=== PATIENT | male | born 1955 | race Caucasian/White ===

== ENCOUNTER 2016-06-16 08:48 | Inpatient (IN) | payer OTHER ==
[~2016-06-16] VITALS: Ht 185.4 cm; Wt 138.0 kg
[~2016-06-16 08:48] MED LIST: ALDACTAZIDE 251 EACH PO; ALDACTONE100 MG PO; AMLODIPINE BESY10 MG PO; CENTRUM ULTRA1 EACH PO; CEPHALEXIN500 MG PO; COGENTIN1 MG PO; Chronulac,Cephulac,E PO; FLOVENT 11120 INHALA IH; FUROSEMIDE40 MG PO; LASIX20 MG PO; OMEPRAZOLE20 M2 PO; POTASSIUM GLUCO2 MEQ PO; SIMVASTATIN20 MG PO; SPIRONOLACTONE25 MG PO; VENTOLIN HFA18 GM IH; VITAMIN D31000 UNIT PO; ZYPREXA10 MG PO
[2016-06-16 10:19] LABS: CHLORIDE 103 mEq/L (99-109); POTASSIUM 4.9 mEq/L (3.7-5.4); SODIUM 136 mEq/L (136-147)
[2016-06-16 10:22] LABS: GLUCOSE 109 mg/dL (70-99); HEMATOCRIT 28.2 % (38.0-50.0); MCH 29.2 PG (29.0-34.0); MCHC 32.6 G/DL (30.0-36.0); MCV 89.5 FL (86-99); MEAN PLAT.VOLUME 11.1 uM^3 (9.0-12.4); PLATELET COUNT 65 K/uL (156-360); RBC DIS.WIDTH-CV 15.8 % (11.8-14.6); RBC DIS.WIDTH-SD 51.1 % (39-53); RED BLOOD COUNT 3.15 M/uL (4.00-5.50); WHITE BLOOD COUNT 5.9 K/uL (4.1-10.2)
[2016-06-16 10:23] LABS: ANION GAP 12 MEQ/L (2-14)
[2016-06-16 10:24] LABS: TOTAL BILIRUBIN 2.2 mg/dL (0.0-1.0)
[2016-06-16 10:25] LABS: GFR ESTIMATE (CALCULATED) 29 mL/min/
[2016-06-16 10:26] LABS: UREA NITROGEN (BUN) 39 mg/dL (9-23)
[2016-06-16 10:29] LABS: TROP-I INTERPRETATION NEGATIVE; TROPONIN-I 0.07 ng/mL (0.0-0.30)
[2016-06-16 11:02] LABS: ALKALINE PHOSPHATASE 124 IU/L (3-129)
[2016-06-16] MEDS ORDERED: POTASSIUM GLUCO2 MEQ PO (11:18)
[2016-06-16] MEDS ORDERED: DAILY VALUE1 EACH PO (11:19)
[2016-06-16 16:00] VITALS: BP 143/78
[2016-06-16 17:04] LABS: TYPE OF FLUID PARACENTESIS
[2016-06-16 17:10] LABS: BODY FLUID RBC'S 1000 /MM^3 (0-100); BODY FLUID WBC'S 10529 /MM^3 (0-500)
[2016-06-16 17:12] LABS: BODY FLUID EOSINOPHILS 2 % (0-25); MONO RAW COUNT 19; MONONUCLEAR WBC'S 19 %; POLY RAW COUNT 79; POLYNUCLEAR WBC'S 79 % (0-25)
[2016-06-16 17:55] LABS: BODY FLUID PROTEIN < 3.0 G/DL
[2016-06-16 18:16] VITALS: BP 132/60
[2016-06-16 19:23] LABS: INFLUENZA A VIRAL ANTIGEN NEGATIVE; INFLUENZA B VIRAL ANTIGEN NEGATIVE
[2016-06-16 19:23] LABS: ADD MIUA? YES; BILIRUBIN NEGATIVE; BLOOD LARGE; COLOR DK YELLOW ((YELLOW)); GLUCOSE (STRIP) NEGATIVE; KETONES NEGATIVE; LEUKOCYTES NEGATIVE; NITRITE NEGATIVE; PROTEIN (STRIP) TRACE; UROBILINOGEN 0.2 MG/DL (0.2-1.0)
[2016-06-16 19:44] LABS: BACTERIA NONE SEEN; CASTS NONE SEEN /LPF; CRYSTALS NONE SEEN; EPITHELIAL CELLS NONE SEEN; MUCUS NONE SEEN; UCUL ADDED? NO; WHITE BLOOD CELLS NONE SEEN /HPF (0-5)
[2016-06-16 21:25] LABS: METH RESISTANT S AUREUS PCR NEGATIVE (NEGATIVE)
[2016-06-16 21:26] LABS: PROBE CHECK PASS; SPECIMEN PROCESSING CONTROL PASS
[2016-06-16 23:33] VITALS: BP 139/75
[2016-06-17 03:33] VITALS: BP 133/71
[2016-06-17 03:52] LABS: ADD MIUA? YES; BILIRUBIN NEGATIVE; BLOOD MODERATE; COLOR YELLOW ((YELLOW)); GLUCOSE (STRIP) NEGATIVE; KETONES NEGATIVE; LEUKOCYTES NEGATIVE; NITRITE NEGATIVE; PROTEIN (STRIP) TRACE; SPECIFIC GRAVITY 1.028 (1.000-1.030); UROBILINOGEN 0.2 MG/DL (0.2-1.0)
[2016-06-17 04:11] LABS: BACTERIA 1+; CASTS PRESENT /LPF; CRYSTALS NONE SEEN; EPITHELIAL CELLS RARE; MUCUS NONE SEEN; WHITE BLOOD CELLS 0-5 /HPF (0-5)
[2016-06-17 04:24] LABS: UR CREATININE CONCENTRATION 114.7 MG/DL
[2016-06-17 06:31] LABS: EOSINOPHIL (%) 0 % (0-5); HEMATOCRIT 25.6 % (38.0-50.0); IMMATURE GRANULOCYTE (%) 0.2 % (0.0-0.7); LYMPHOCYTE COUNT 0.3 K/uL (1.0-2.8); MCH 28.7 PG (29.0-34.0); MCHC 32.4 G/DL (30.0-36.0); MCV 88.6 FL (86-99); MEAN PLAT.VOLUME 11.6 uM^3 (9.0-12.4); MONOCYTE (%) 14.5 % (3-12); MONOCYTE COUNT 0.7 K/uL (0-0.8); NEUTROPHIL (%) 79.9 % (45-76); PLATELET COUNT 56 K/uL (156-360); RBC DIS.WIDTH-CV 15.9 % (11.8-14.6); RBC DIS.WIDTH-SD 50.9 % (39-53); RED BLOOD COUNT 2.89 M/uL (4.00-5.50)
[2016-06-17 06:49] LABS: INTER. NORMALIZED RATIO 1.5; PROTHROMBIN TIME 15.4 (9.2-11.2); PTT 28.1 (25-32)
[2016-06-17 06:59] LABS: ALKALINE PHOSPHATASE 102 IU/L (3-129); ANION GAP 10 MEQ/L (2-14); CHLORIDE 101 MEQ/L (99-109); GFR ESTIMATE (CALCULATED) 27 mL/min/; POTASSIUM 4.6 MEQ/L (3.7-5.4); SAMPLE HEMOLYSIS CHECK 0; SAMPLE ICTERIC CHECK 0; SAMPLE LIPEMIA CHECK 0; SODIUM 134 MEQ/L (136-147); TOTAL BILIRUBIN 1.1 MG/DL (0.0-1.0); UREA NITROGEN (BUN) 46 mg/dL (9-23)
[2016-06-17 06:59] LABS: ANION GAP 10 MEQ/L (2-14); CHLORIDE 101 MEQ/L (99-109); GFR ESTIMATE (CALCULATED) 28 mL/min/; IRON 26 MCG/DL (35-150); POTASSIUM 4.6 MEQ/L (3.7-5.4); SAMPLE HEMOLYSIS CHECK 0; SAMPLE ICTERIC CHECK 0; SAMPLE LIPEMIA CHECK 0; SODIUM 134 MEQ/L (136-147); UREA NITROGEN (BUN) 45 mg/dL (9-23)
[2016-06-17 07:12] LABS: URIC ACID 11.1 mg/dL (3.1-9.2)
[2016-06-17 07:13] LABS: GLUCOSE 190 mg/dL (70-99)
[2016-06-17 07:13] LABS: GLUCOSE 187 mg/dL (70-99)
[2016-06-17 07:52] VITALS: BP 132/64
[2016-06-17 08:03] LABS: INTERNAL CONTROL VALID? YES
[2016-06-17 12:20] VITALS: BP 145/70
[2016-06-17 15:35] VITALS: BP 139/68
[2016-06-17 20:15] VITALS: BP 139/73
[2016-06-18] VITALS: BP 144/74
[2016-06-18 04:00] VITALS: BP 149/76
[2016-06-18 06:39] LABS: EOSINOPHIL (%) 0.2 % (0-5); IMMATURE GRANULOCYTE (%) 0.2 % (0.0-0.7); LYMPHOCYTE COUNT 0.5 K/uL (1.0-2.8); MCH 29.5 PG (29.0-34.0); MCHC 33.2 G/DL (30.0-36.0); MEAN PLAT.VOLUME 11.3 uM^3 (9.0-12.4); MONOCYTE (%) 9.4 % (3-12); MONOCYTE COUNT 0.6 K/uL (0-0.8); NEUTROPHIL (%) 81.5 % (45-76); NEUTROPHIL COUNT 4.9 K/uL (1.8-6.4); PLATELET COUNT 63 K/uL (156-360); RBC DIS.WIDTH-CV 15.9 % (11.8-14.6); RBC DIS.WIDTH-SD 51.5 % (39-53); RED BLOOD COUNT 2.81 M/uL (4.00-5.50)
[2016-06-18 07:00] LABS: ANION GAP 12 MEQ/L (2-14); CHLORIDE 99 MEQ/L (99-109); GFR ESTIMATE (CALCULATED) 24 mL/min/; GLUCOSE 144 mg/dL (70-99); POTASSIUM 4.6 MEQ/L (3.7-5.4); SAMPLE HEMOLYSIS CHECK 0; SAMPLE ICTERIC CHECK 0; SAMPLE LIPEMIA CHECK 0; SODIUM 134 MEQ/L (136-147); UREA NITROGEN (BUN) 53 mg/dL (9-23)
[2016-06-18 07:01] LABS: ALKALINE PHOSPHATASE 94 IU/L (3-129); ANION GAP 13 MEQ/L (2-14); CHLORIDE 99 MEQ/L (99-109); GFR ESTIMATE (CALCULATED) 25 mL/min/; GLUCOSE 144 mg/dL (70-99); POTASSIUM 4.6 MEQ/L (3.7-5.4); SAMPLE HEMOLYSIS CHECK 0; SAMPLE ICTERIC CHECK 0; SAMPLE LIPEMIA CHECK 0; SODIUM 134 MEQ/L (136-147); TOTAL BILIRUBIN 0.9 MG/DL (0.0-1.0); UREA NITROGEN (BUN) 52 mg/dL (9-23)
[2016-06-18 07:50] VITALS: BP 154/76
[2016-06-18 16:07] VITALS: BP 152/71
[2016-06-18 23:32] VITALS: BP 134/71; BP 134/710
[2016-06-19 07:19] LABS: ANION GAP 12 MEQ/L (2-14); CHLORIDE 97 MEQ/L (99-109); GFR ESTIMATE (CALCULATED) 24 mL/min/; GLUCOSE 147 mg/dL (70-99); POTASSIUM 4.9 MEQ/L (3.7-5.4); SAMPLE HEMOLYSIS CHECK 0; SAMPLE ICTERIC CHECK 0; SAMPLE LIPEMIA CHECK 0; SODIUM 132 MEQ/L (136-147); UREA NITROGEN (BUN) 57 mg/dL (9-23)
[2016-06-19 07:42] VITALS: BP 143/82
[2016-06-19 11:13] LABS: TYPE OF FLUID PARACENTESIS
[2016-06-19 11:38] LABS: BODY FLUID RBC'S 1000 /MM^3 (0-100); BODY FLUID WBC'S 627 /MM^3 (0-500)
[2016-06-19 12:10] LABS: BODY FLUID EOSINOPHILS 0 % (0-25); POLY RAW COUNT 41; POLYNUCLEAR WBC'S 41 % (0-25)
[2016-06-19 12:11] LABS: MONO RAW COUNT 59; MONONUCLEAR WBC'S 59 %
[2016-06-19 15:34] VITALS: BP 186/93
[2016-06-19 17:31] VITALS: BP 144/80
[2016-06-20] VITALS: BP 158/71
[2016-06-20 06:44] LABS: EOSINOPHIL (%) 0.2 % (0-5); HEMATOCRIT 25.9 % (38.0-50.0); IMMATURE GRANULOCYTE (%) 0.5 % (0.0-0.7); LYMPHOCYTE COUNT 0.4 K/uL (1.0-2.8); MCH 28.6 PG (29.0-34.0); MCHC 32.8 G/DL (30.0-36.0); MCV 87.2 FL (86-99); MEAN PLAT.VOLUME 10.9 uM^3 (9.0-12.4); MONOCYTE (%) 7.4 % (3-12); MONOCYTE COUNT 0.5 K/uL (0-0.8); NEUTROPHIL (%) 85.4 % (45-76); NEUTROPHIL COUNT 5.3 K/uL (1.8-6.4); PLATELET COUNT 74 K/uL (156-360); RBC DIS.WIDTH-CV 15.8 % (11.8-14.6); RBC DIS.WIDTH-SD 50.3 % (39-53); RED BLOOD COUNT 2.97 M/uL (4.00-5.50); WHITE BLOOD COUNT 6.2 K/uL (4.1-10.2)
[2016-06-20 08:42] VITALS: BP 150/80
[2016-06-20 08:59] LABS: ANION GAP 11 MEQ/L (2-14); CHLORIDE 99 MEQ/L (99-109); GFR ESTIMATE (CALCULATED) 23 mL/min/; GLUCOSE 139 mg/dL (70-99); SAMPLE HEMOLYSIS CHECK 0; SAMPLE ICTERIC CHECK 0; SAMPLE LIPEMIA CHECK 0; SODIUM 132 MEQ/L (136-147); UREA NITROGEN (BUN) 63 mg/dL (9-23)
[2016-06-20 14:43] VITALS: BP 138/75
[2016-06-20 20:23] VITALS: BP 140/80
[2016-06-20 23:59] VITALS: BP 142/65
[2016-06-21 06:43] LABS: ANION GAP 11 MEQ/L (2-14); CHLORIDE 99 MEQ/L (99-109); GFR ESTIMATE (CALCULATED) 23 mL/min/; GLUCOSE 140 mg/dL (70-99); POTASSIUM 4.6 MEQ/L (3.7-5.4); SAMPLE HEMOLYSIS CHECK 0; SAMPLE ICTERIC CHECK 0; SAMPLE LIPEMIA CHECK 0; SODIUM 132 MEQ/L (136-147); UREA NITROGEN (BUN) 67 mg/dL (9-23)
[2016-06-21 07:39] VITALS: BP 137/81
[2016-06-21 12:42] LABS: TYPE OF FLUID PARACENTESIS
[2016-06-21 12:53] LABS: BODY FLUID RBC'S < 1000 /MM^3 (0-100); BODY FLUID WBC'S 424 /MM^3 (0-500)
[2016-06-21 14:33] LABS: BODY FLUID EOSINOPHILS 0 % (0-25); MONO RAW COUNT 87; MONONUCLEAR WBC'S 87 %; POLY RAW COUNT 13; POLYNUCLEAR WBC'S 13 % (0-25)
[2016-06-21 15:57] VITALS: BP 142/75
[2016-06-22 00:07] VITALS: BP 155/82
[2016-06-22 07:00] LABS: HEMATOCRIT 25.7 % (38.0-50.0); MCH 28.8 PG (29.0-34.0); MCHC 33.5 G/DL (30.0-36.0); MEAN PLAT.VOLUME 9.7 uM^3 (9.0-12.4); PLATELET COUNT 60 K/uL (156-360); RBC DIS.WIDTH-CV 15.7 % (11.8-14.6); RBC DIS.WIDTH-SD 49.5 % (39-53); RED BLOOD COUNT 2.99 M/uL (4.00-5.50); WHITE BLOOD COUNT 5.8 K/uL (4.1-10.2)
[2016-06-22 07:24] LABS: ALKALINE PHOSPHATASE 85 IU/L (3-129); ANION GAP 13 MEQ/L (2-14); CHLORIDE 98 MEQ/L (99-109); GFR ESTIMATE (CALCULATED) 22 mL/min/; GLUCOSE 118 mg/dL (70-99); POTASSIUM 4.2 MEQ/L (3.7-5.4); SAMPLE HEMOLYSIS CHECK 0; SAMPLE ICTERIC CHECK 0; SAMPLE LIPEMIA CHECK 0; SODIUM 134 MEQ/L (136-147); TOTAL BILIRUBIN 0.9 MG/DL (0.0-1.0); UREA NITROGEN (BUN) 75 mg/dL (9-23)
[2016-06-22 07:25] VITALS: BP 140/79
[2016-06-22] MEDS ORDERED: ADVAIR HFA120 INHALA IH (10:49)
[2016-06-22] MEDS ORDERED: SPIRIVA RESPIMAT4 GM IH ×2 (10:49→11:07)
[2016-06-22] MEDS ORDERED: XIFAXAN550 MG PO (10:49)
[2016-06-22] MEDS ORDERED: PREDNISONE10 MG PO (10:49)
[2016-06-22] MEDS ORDERED: BUMETANIDE1 MG PO (10:49)
[2016-06-22] MEDS ORDERED: ALDACTONE25 MG PO ×2 (11:17→11:18)
== END 2016-06-22 12:58 | disposition home or self-care (01) | DRG 371 ==
LOC: EME → EDBD 08:48 → EME 08:48 → 5SOUTH 11:42 → EDOF 11:42 → 5SOUTH 14:38
PROVIDERS: Emergency Medicine; Internal Medicine; Internal Medicine Gastroenterology; Internal Medicine Infectious Disease; Internal Medicine Nephrology; Radiology Diagnostic Radiology
PROC: 0W9G3ZX Drainage of Peritoneal Cavity, Percutaneous Approach, Diagnostic (ICD-10-PCS; principal; 2016-06-16)
PROC: 0W9G3ZX Drainage of Peritoneal Cavity, Percutaneous Approach, Diagnostic (ICD-10-PCS; 2016-06-19)
PROC: 0W9G3ZX Drainage of Peritoneal Cavity, Percutaneous Approach, Diagnostic (ICD-10-PCS; 2016-06-21)
DX: K65.2 Spontaneous bacterial peritonitis (principal); J18.9 Pneumonia, unspecified organism; N17.9 Acute kidney failure, unspecified; J81.1 Chronic pulmonary edema; J90 Pleural effusion, not elsewhere classified; K76.6 Portal hypertension; L03.115 Cellulitis of right lower limb; L03.114 Cellulitis of left upper limb; J44.1 Chronic obstructive pulmonary disease with (acute) exacerbation; N18.4 Chronic kidney disease, stage 4 (severe); E87.1 Hypo-osmolality and hyponatremia; K72.90 Hepatic failure, unspecified without coma; K70.31 Alcoholic cirrhosis of liver with ascites; I12.9 Hypertensive chronic kidney disease with stage 1 through stage 4 chronic kidney disease, or unspecified chronic kidney disease; E66.9 Obesity, unspecified; E78.5 Hyperlipidemia, unspecified; F17.200 Nicotine dependence, unspecified, uncomplicated; D64.9 Anemia, unspecified; I89.0 Lymphedema, not elsewhere classified; D69.6 Thrombocytopenia, unspecified; N28.1 Cyst of kidney, acquired; E11.22 Type 2 diabetes mellitus with diabetic chronic kidney disease; Z68.38 Body mass index [BMI] 38.0-38.9, adult; Z86.19 Personal history of other infectious and parasitic diseases
CPT/HCPCS: 71010; 71020; 80048; 80053; 80069; 81003; 82040; 82105 90; 82570; 82607; 82746; 83540; 83935; 84100; 84156; 84157; 84300; 84466; 84484; 84550; 85025; 85027; 85610; 85730; 87070; 87075; 87205; 87449; 87502; 87641; 88108; 88305; 89051; 93005; 94640; 94640 76; 94760; 94799; 99202; 99281; 99285; J0696; J1940; J7050; J7512; P9047

== ENCOUNTER 2016-06-24 19:46 | Emergency (ER) | payer OTHER ==
[~2016-06-24] VITALS: Ht 180.3 cm; Wt 124.2 kg
[~2016-06-24 19:46] MED LIST changes: +ADVAIR HFA120 INHALA IH; +ALDACTONE25 MG PO; +BUMETANIDE1 MG PO; +DAILY VALUE1 EACH PO; +PREDNISONE10 MG PO; +SPIRIVA RESPIMAT4 GM IH; +XIFAXAN550 MG PO
[2016-06-24 20:16] LABS: HEMATOCRIT 28.1 % (38.0-50.0); MCH 28.1 PG (29.0-34.0); MCHC 32.4 G/DL (30.0-36.0); MCV 86.7 FL (86-99); MEAN PLAT.VOLUME 9.7 uM^3 (9.0-12.4); PLATELET COUNT 73 K/uL (156-360); RBC DIS.WIDTH-CV 15.1 % (11.8-14.6); RBC DIS.WIDTH-SD 46.1 % (39-53); RED BLOOD COUNT 3.24 M/uL (4.00-5.50); WHITE BLOOD COUNT 6.4 K/uL (4.1-10.2)
[2016-06-24 20:25] LABS: CHLORIDE 97 mEq/L (99-109); POTASSIUM 4.1 mEq/L (3.7-5.4); SODIUM 135 mEq/L (136-147)
[2016-06-24 20:27] LABS: GLUCOSE 157 mg/dL (70-99)
[2016-06-24 20:28] LABS: ANION GAP 13 MEQ/L (2-14)
[2016-06-24 20:29] LABS: TOTAL BILIRUBIN 1.2 mg/dL (0.0-1.0)
[2016-06-24 20:31] LABS: ALKALINE PHOSPHATASE 102 IU/L (3-129); GFR ESTIMATE (CALCULATED) 25 mL/min/
[2016-06-24 20:32] LABS: UREA NITROGEN (BUN) 89 mg/dL (9-23)
[2016-06-24 20:34] LABS: LIPASE 60 U/L (1.0-51.0)
[2016-06-24 20:53] LABS: INTER. NORMALIZED RATIO 1.4; PROTHROMBIN TIME 14.7 (9.2-11.2); PTT 25.6 (25-32)
[2016-06-24 21:04] LABS: ADD MIUA? YES; BILIRUBIN NEGATIVE; BLOOD MODERATE; COLOR YELLOW ((YELLOW)); GLUCOSE (STRIP) NEGATIVE; KETONES NEGATIVE; LEUKOCYTES NEGATIVE; NITRITE NEGATIVE; PH, URINE 5.5 (5-8); PROTEIN (STRIP) 30; SPECIFIC GRAVITY 1.015 (1.000-1.030); UROBILINOGEN 0.2 MG/DL (0.2-1.0)
[2016-06-24 22:05] LABS: BACTERIA NONE SEEN; CASTS PRESENT /LPF; CRYSTALS NONE SEEN; EPITHELIAL CELLS NONE SEEN; HYALINE CASTS 0-5 /LPF; MUCUS NONE SEEN; UCUL ADDED? NO; WHITE BLOOD CELLS 0-5 /HPF (0-5)
[2016-06-24 23:36] VITALS: BP 136/77
== END 2016-06-24 23:53 | disposition home or self-care (01) ==
LOC: EME → EDBD 19:46 → EME 23:53
PROVIDERS: Emergency Medicine
PROC: 0HQ7XZZ Repair Abdomen Skin, External Approach (ICD-10-PCS; principal; 2016-06-24)
DX: K91.89 Other postprocedural complications and disorders of digestive system (principal); K72.10 Chronic hepatic failure without coma; N18.9 Chronic kidney disease, unspecified; J43.9 Emphysema, unspecified; J44.9 Chronic obstructive pulmonary disease, unspecified; F17.200 Nicotine dependence, unspecified, uncomplicated
CPT/HCPCS: 80053; 81003; 82140; 83690; 85027; 85610; 85730; 94640; 99281; 99285

== ENCOUNTER 2016-06-27 16:03 | Emergency (ER) | payer OTHER ==
[~2016-06-27] VITALS: Ht 180.3 cm; Wt 122.5 kg
[2016-06-27 19:25] VITALS: BP 154/79
== END 2016-06-27 19:26 | disposition home or self-care (01) ==
LOC: EME 16:03
DX: R18.8 Other ascites (principal); N18.3 Chronic kidney disease, stage 3 (moderate); J43.9 Emphysema, unspecified; J44.9 Chronic obstructive pulmonary disease, unspecified; E11.9 Type 2 diabetes mellitus without complications; F17.200 Nicotine dependence, unspecified, uncomplicated; Z79.4 Long term (current) use of insulin
CPT/HCPCS: 99281; 99283

== ENCOUNTER → 2016-07-10 | Outpatient (CLI) | payer OTHER | END | disposition home or self-care (01) | LOC: RAD 08:35 | DX: K70.31 Alcoholic cirrhosis of liver with ascites (principal); K76.6 Portal hypertension; J18.9 Pneumonia, unspecified organism; R06.02 Shortness of breath; Z88.7 Allergy status to serum and vaccine | CPT/HCPCS: 71250 ==

== ENCOUNTER 2016-08-20 20:30 | Inpatient (IN) | payer OTHER ==
[~2016-08-20] VITALS: Ht 180.3 cm; Wt 95.0 kg
[2016-08-20 21:10] LABS: CHLORIDE 103 mEq/L (99-109); POTASSIUM 4.2 mEq/L (3.7-5.4); SODIUM 138 mEq/L (136-147)
[2016-08-20 21:11] LABS: GLUCOSE 114 mg/dL (70-99)
[2016-08-20 21:13] LABS: ANION GAP 13 MEQ/L (2-14)
[2016-08-20 21:15] LABS: GFR ESTIMATE (CALCULATED) 31 mL/min/; SERUM ETHYL ALCOHOL < 10 mg/dL
[2016-08-20 21:16] LABS: UREA NITROGEN (BUN) 79 mg/dL (9-23)
[2016-08-20 21:41] LABS: HEMATOCRIT 36.4 % (38.0-50.0); MCH 30.6 PG (29.0-34.0); MCHC 32.4 G/DL (30.0-36.0); MCV 94.3 FL (86-99); MEAN PLAT.VOLUME 10.8 uM^3 (9.0-12.4); PLATELET COUNT 91 K/uL (156-360); RBC DIS.WIDTH-CV 18.6 % (11.8-14.6); RBC DIS.WIDTH-SD 63.8 % (39-53); RED BLOOD COUNT 3.86 M/uL (4.00-5.50)
[2016-08-20 22:05] LABS: AMPHETAMINE NEGATIVE (500 ng/mL); BARBITURATES NEGATIVE (200 ng/mL); BENZODIAZEPINES NEGATIVE (150 ng/mL); COCAINE NEGATIVE (150 ng/mL); INTERNAL CONTROLS VALID? YES; METHADONE NEGATIVE (200 ng/mL); METHAMPHETAMINE NEGATIVE (500 ng/mL); OPIATES (MORPHINE) NEGATIVE (100 ng/mL); OXYCODONE NEGATIVE (100 ng/mL); PHENCYCLIDINE NEGATIVE (25 ng/mL); PROPOXYPHENE NEGATIVE (300 ng/mL); THC CANNABINOIDS NEGATIVE (50 ng/mL); TRICYCLIC ANTIDEPRESSANTS NEGATIVE (300 ng/mL)
[2016-08-20 22:51] LABS: INTER. NORMALIZED RATIO 1.4; PROTHROMBIN TIME 14.3 (9.2-11.2); PTT 27.3 (25-32)
[2016-08-20 22:55] LABS: TOTAL BILIRUBIN 1.5 mg/dL (0.0-1.0)
[2016-08-20 23:12] LABS: SERUM ETHYL ALCOHOL < 10 mg/dL
[2016-08-20 23:13] LABS: ALKALINE PHOSPHATASE 85 IU/L (3-129)
[2016-08-20 23:15] LABS: DIRECT BILIRUBIN 0.5 mg/dL (0.0-0.3)
[2016-08-20 23:16] LABS: SALICYLATE < 5.0 MG/DL (15-30)
[2016-08-20 23:55] VITALS: BP 151/74
[2016-08-21] VITALS: BP 151/74
[2016-08-21 00:29] LABS: POINT-OF-CARE METER ID UU13113830; POINT-OF-CARE USER ID BHSSMG
[2016-08-21] MEDS ORDERED: SPIRONOLACTONE100 MG PO (03:08)
[2016-08-21] MEDS ORDERED: INCRUSE ELLI62.5 MCG IH (03:08)
[2016-08-21] MEDS ORDERED: XIFAXAN550 MG PO (03:09)
[2016-08-21] MEDS ORDERED: ADVAIR HFA120 INHALA IH (03:09)
[2016-08-21] MEDS ORDERED: BUMETANIDE1 MG PO (03:10)
[2016-08-21] MEDS ORDERED: COREG25 M1 PO (03:10)
[2016-08-21] MEDS ORDERED: OLANZAPINE10 MG PO (03:11)
[2016-08-21] MEDS ORDERED: OMEPRAZOLE20 M2 PO (03:11)
[2016-08-21] MEDS ORDERED: LASIX20 MG PO (03:12)
[2016-08-21] MEDS ORDERED: SIMVASTATIN20 MG PO (03:12)
[2016-08-21] MEDS ORDERED: FLOVENT 11120 INHALA IH (03:13)
[2016-08-21] MEDS ORDERED: LOSARTAN POTASS25 MG PO (03:13)
[2016-08-21] MEDS ORDERED: BENZTROPINE MESY1 MG PO (03:13)
[2016-08-21 06:07] LABS: POINT-OF-CARE METER ID UU13113830; POINT-OF-CARE USER ID BHSSMG
[2016-08-21 07:49] VITALS: BP 121/76
[2016-08-21 15:52] VITALS: BP 142/66
[2016-08-22 07:59] VITALS: BP 98/60
[2016-08-22 15:43] VITALS: BP 114/56
[2016-08-22 15:51] LABS: HEMATOCRIT 35.4 % (38.0-50.0); MCH 30.3 PG (29.0-34.0); MCHC 32.2 G/DL (30.0-36.0); MCV 94.1 FL (86-99); MEAN PLAT.VOLUME 10.3 uM^3 (9.0-12.4); PLATELET COUNT 68 K/uL (156-360); RBC DIS.WIDTH-CV 18.6 % (11.8-14.6); RBC DIS.WIDTH-SD 64.1 % (39-53); RED BLOOD COUNT 3.76 M/uL (4.00-5.50); WHITE BLOOD COUNT 3.7 K/uL (4.1-10.2)
[2016-08-22 16:03] LABS: CHLORIDE 103 mEq/L (99-109); POTASSIUM 4.5 mEq/L (3.7-5.4); SODIUM 135 mEq/L (136-147)
[2016-08-22 16:05] LABS: GLUCOSE 179 mg/dL (70-99)
[2016-08-22 16:06] LABS: ANION GAP 11 MEQ/L (2-14)
[2016-08-22 16:08] LABS: GFR ESTIMATE (CALCULATED) 24 mL/min/
[2016-08-22 16:09] LABS: UREA NITROGEN (BUN) 92 mg/dL (9-23)
[2016-08-23] MEDS ORDERED: FUROSEMIDE20 MG PO (18:15)
[2016-08-23] MEDS ORDERED: IRON325 M1 PO (18:16)
== END 2016-08-22 18:27 | DRG 885 ==
LOC: EME → EDBD 20:30 → EME 20:30 → EDOF 23:25 → 1WEST 23:25
PROVIDERS: Emergency Medicine; Nurse Practitioner Adult Health; Psychiatry & Neurology Psychiatry
DX: F25.0 Schizoaffective disorder, bipolar type (principal); L03.115 Cellulitis of right lower limb; R78.81 Bacteremia; N17.9 Acute kidney failure, unspecified; K70.40 Alcoholic hepatic failure without coma; K70.31 Alcoholic cirrhosis of liver with ascites; K76.6 Portal hypertension; I12.9 Hypertensive chronic kidney disease with stage 1 through stage 4 chronic kidney disease, or unspecified chronic kidney disease; N18.3 Chronic kidney disease, stage 3 (moderate); D68.4 Acquired coagulation factor deficiency; E11.22 Type 2 diabetes mellitus with diabetic chronic kidney disease; J44.9 Chronic obstructive pulmonary disease, unspecified; B19.20 Unspecified viral hepatitis C without hepatic coma; F10.10 Alcohol abuse, uncomplicated; F19.10 Other psychoactive substance abuse, uncomplicated; F17.200 Nicotine dependence, unspecified, uncomplicated; E78.5 Hyperlipidemia, unspecified; Z91.14 Patient's other noncompliance with medication regimen; Z85.828 Personal history of other malignant neoplasm of skin
CPT/HCPCS: 71010; 80048; 80076; 82140; 82948; 83605; 85027; 85610; 85730; 87040; 87077; 87186; 87801; 90839; 93005; 93971; 94640; 94640 76; 99281; 99284; G0480; J0696

== ENCOUNTER 2016-08-22 16:29 | Inpatient (IN) | payer OTHER ==
[~2016-08-22 16:29] MED LIST changes: +BENZTROPINE MESY1 MG PO; +COREG25 M1 PO; +INCRUSE ELLI62.5 MCG IH; +LOSARTAN POTASS25 MG PO; +OLANZAPINE10 MG PO; +SPIRONOLACTONE100 MG PO
[2016-08-22 21:24] VITALS: BP 125/73
[2016-08-23 00:11] VITALS: BP 124/72
[2016-08-23 04:46] VITALS: BP 117/72
[2016-08-23 07:15] LABS: MCHC 32.3 G/DL (30.0-36.0); MCV 92.8 FL (86-99); MEAN PLAT.VOLUME 10.6 uM^3 (9.0-12.4); PLATELET COUNT 73 K/uL (156-360); RBC DIS.WIDTH-CV 18.4 % (11.8-14.6); RBC DIS.WIDTH-SD 63.1 % (39-53); RED BLOOD COUNT 3.77 M/uL (4.00-5.50); WHITE BLOOD COUNT 4.6 K/uL (4.1-10.2)
[2016-08-23 07:23] LABS: INTER. NORMALIZED RATIO 1.3; PROTHROMBIN TIME 13.6 (9.2-11.2); PTT 26.5 (25-32)
[2016-08-23 07:33] LABS: ALKALINE PHOSPHATASE 70 IU/L (3-129); ANION GAP 9 MEQ/L (2-14); CHLORIDE 101 MEQ/L (99-109); GFR ESTIMATE (CALCULATED) 23 mL/min/; POTASSIUM 4.2 MEQ/L (3.7-5.4); SAMPLE HEMOLYSIS CHECK 0; SAMPLE ICTERIC CHECK 0; SAMPLE LIPEMIA CHECK 0; SODIUM 135 MEQ/L (136-147); TOTAL BILIRUBIN 0.6 MG/DL (0.0-1.0); UREA NITROGEN (BUN) 90 mg/dL (9-23)
[2016-08-23 07:36] LABS: GLUCOSE 99 mg/dL (70-99)
[2016-08-23 07:55] VITALS: BP 124/68
[2016-08-23 11:43] VITALS: BP 113/69
[2016-08-23 15:06] VITALS: BP 130/68
[2016-08-23] MEDS ORDERED: FUROSEMIDE20 MG PO (18:15)
[2016-08-23] MEDS ORDERED: IRON325 M1 PO (18:16)
[2016-08-23 20:00] VITALS: BP 157/76
[2016-08-24] VITALS (7 sets, daily range): BP systolic 139–176; BP diastolic 54–80
[2016-08-24 07:44] LABS: EOSINOPHIL COUNT 0.2 K/uL (0-0.3); HEMATOCRIT 32.4 % (38.0-50.0); IMMATURE GRANULOCYTE (%) 0.3 % (0.0-0.7); MCH 30.6 PG (29.0-34.0); MCHC 32.7 G/DL (30.0-36.0); MCV 93.6 FL (86-99); MEAN PLAT.VOLUME 11.3 uM^3 (9.0-12.4); MONOCYTE (%) 16.2 % (3-12); MONOCYTE COUNT 0.6 K/uL (0-0.8); NEUTROPHIL (%) 52.7 % (45-76); PLATELET COUNT 67 K/uL (156-360); RBC DIS.WIDTH-CV 18.4 % (11.8-14.6); RBC DIS.WIDTH-SD 63.3 % (39-53); RED BLOOD COUNT 3.46 M/uL (4.00-5.50); WHITE BLOOD COUNT 3.8 K/uL (4.1-10.2)
[2016-08-24 07:57] LABS: ALKALINE PHOSPHATASE 59 IU/L (3-129); ANION GAP 7 MEQ/L (2-14); CHLORIDE 107 MEQ/L (99-109); GFR ESTIMATE (CALCULATED) 31 mL/min/; GLUCOSE 118 mg/dL (70-99); MAGNESIUM 2.2 mg/dl (1.3-2.7); POTASSIUM 4.4 MEQ/L (3.7-5.4); SAMPLE HEMOLYSIS CHECK 0; SAMPLE ICTERIC CHECK 0; SAMPLE LIPEMIA CHECK 0; SODIUM 138 MEQ/L (136-147); TOTAL BILIRUBIN 0.7 MG/DL (0.0-1.0); UREA NITROGEN (BUN) 80 mg/dL (9-23)
[2016-08-25 03:36] VITALS: BP 173/76
[2016-08-25 07:49] VITALS: BP 185/87
[2016-08-25 11:15] VITALS: BP 181/82
[2016-08-25 11:16] VITALS: BP 181/82
[2016-08-25 15:07] VITALS: BP 198/92
[2016-08-25 20:00] VITALS: BP 193/85
[2016-08-26] VITALS: BP 162/79
[2016-08-26 04:00] VITALS: BP 129/60
[2016-08-26 07:45] VITALS: BP 152/71
[2016-08-26 09:28] LABS: HEMATOCRIT 33.8 % (38.0-50.0); MCH 30.3 PG (29.0-34.0); MCV 94.9 FL (86-99); RBC DIS.WIDTH-CV 17.1 % (11.8-14.6); RBC DIS.WIDTH-SD 59.6 % (39-53); RED BLOOD COUNT 3.56 M/uL (4.00-5.50)
[2016-08-26 10:04] LABS: ALKALINE PHOSPHATASE 69 IU/L (3-129); ANION GAP 7 MEQ/L (2-14); CHLORIDE 112 MEQ/L (99-109); GLUCOSE 155 mg/dL (70-99); POTASSIUM 4.5 MEQ/L (3.7-5.4); SAMPLE HEMOLYSIS CHECK 0; SAMPLE ICTERIC CHECK 0; SAMPLE LIPEMIA CHECK 0; SODIUM 140 MEQ/L (136-147); UREA NITROGEN (BUN) 54 mg/dL (9-23)
[2016-08-26 10:05] LABS: GFR ESTIMATE (CALCULATED) 47 mL/min/; TOTAL BILIRUBIN 0.9 MG/DL (0.0-1.0)
[2016-08-26 10:26] LABS: IMM.PLATELET FRACTION 1.8 (1-7); MEAN PLAT.VOLUME 11.1 uM^3 (9.0-12.4); PLAT.SUFFICIENCY DECREASED
[2016-08-26 10:43] LABS: PLATELET COUNT 43 K/uL (156-360)
[2016-08-26 11:44] VITALS: BP 153/78
== END 2016-08-26 15:54 | disposition left against medical advice (07) | DRG 872 ==
LOC: 5SOUTH 16:29
PROVIDERS: Internal Medicine; Nurse Practitioner Adult Health; Physician Assistant Medical
DX: R78.81 Bacteremia (principal); B95.0 Streptococcus, group A, as the cause of diseases classified elsewhere; L03.115 Cellulitis of right lower limb; N17.9 Acute kidney failure, unspecified; E86.0 Dehydration; K72.90 Hepatic failure, unspecified without coma; K70.31 Alcoholic cirrhosis of liver with ascites; I12.9 Hypertensive chronic kidney disease with stage 1 through stage 4 chronic kidney disease, or unspecified chronic kidney disease; N18.3 Chronic kidney disease, stage 3 (moderate); E78.5 Hyperlipidemia, unspecified; J44.9 Chronic obstructive pulmonary disease, unspecified; E66.9 Obesity, unspecified; F25.9 Schizoaffective disorder, unspecified; D69.6 Thrombocytopenia, unspecified; Z86.19 Personal history of other infectious and parasitic diseases; Z68.29 Body mass index [BMI] 29.0-29.9, adult
CPT/HCPCS: 71010; 76705; 76770; 80053; 82140; 82945; 83615 91; 83735; 84100; 85025; 85027; 85610; 85730; 87070; 87205; 89051; 94640 76; J0696; J7030; J7050; P9047

== ENCOUNTER 2016-09-06 16:32 | Emergency (ER) | payer OTHER ==
[~2016-09-06] VITALS: Ht 180.3 cm; Wt 93.3 kg
[~2016-09-06 16:32] MED LIST changes: +FUROSEMIDE20 MG PO; +IRON325 M1 PO
[2016-09-06 18:16] LABS: HEMATOCRIT 37.4 % (38.0-50.0); MCH 30.7 PG (29.0-34.0); MCHC 33.4 G/DL (30.0-36.0); MCV 91.9 FL (86-99); MEAN PLAT.VOLUME 9.9 uM^3 (9.0-12.4); RBC DIS.WIDTH-CV 16.2 % (11.8-14.6); RBC DIS.WIDTH-SD 54.5 % (39-53); RED BLOOD COUNT 4.07 M/uL (4.00-5.50)
[2016-09-06 18:17] LABS: PLATELET COUNT 83 K/uL (156-360); WHITE BLOOD COUNT 5.5 K/uL (4.1-10.2)
[2016-09-06 18:18] LABS: CHLORIDE 109 mEq/L (99-109); POTASSIUM 4.7 mEq/L (3.7-5.4); SODIUM 138 mEq/L (136-147)
[2016-09-06 18:20] LABS: GLUCOSE 91 mg/dL (70-99)
[2016-09-06 18:21] LABS: ANION GAP 8 MEQ/L (2-14)
[2016-09-06 18:24] LABS: GFR ESTIMATE (CALCULATED) 41 mL/min/; UREA NITROGEN (BUN) 48 mg/dL (9-23)
[2016-09-06 18:31] LABS: TROP-I INTERPRETATION NEGATIVE; TROPONIN-I 0.03 ng/mL (0.0-0.30)
[2016-09-06 19:11] VITALS: BP 177/76
== END 2016-09-06 19:14 | disposition home or self-care (01) ==
LOC: EME 16:32
PROVIDERS: Nurse Practitioner Family
DX: S22.050A Wedge compression fracture of T5-T6 vertebra, initial encounter for closed fracture (principal); X50.9XXA Other and unspecified overexertion or strenuous movements or postures, initial encounter; Y93.01 Activity, walking, marching and hiking; Y92.828 Other wilderness area as the place of occurrence of the external cause
CPT/HCPCS: 71020; 72070; 80048; 81003; 84484; 85027; 93005; 99281; 99284

== ENCOUNTER 2016-10-04 12:38 | Emergency (ER) | payer OTHER ==
[~2016-10-04] VITALS: Ht 180.3 cm; Wt 98.5 kg
[2016-10-04 14:00] LABS: ADD MIUA? YES; BILIRUBIN NEGATIVE; BLOOD MODERATE; COLOR YELLOW ((YELLOW)); GLUCOSE (STRIP) NEGATIVE; KETONES NEGATIVE; LEUKOCYTES NEGATIVE; NITRITE NEGATIVE; PROTEIN (STRIP) 100; SPECIFIC GRAVITY 1.013 (1.000-1.030); UROBILINOGEN 0.2 MG/DL (0.2-1.0)
[2016-10-04 14:06] LABS: BACTERIA NONE SEEN /HPF; EPITHELIAL CELLS NONE SEEN /HPF; MUCUS NONE SEEN /LPF; WHITE BLOOD CELLS 0-5 /HPF (0-5)
[2016-10-04 14:31] LABS: HEMATOCRIT 35.6 % (38.0-50.0); MCH 30.8 PG (29.0-34.0); MCHC 33.1 G/DL (30.0-36.0); MEAN PLAT.VOLUME 10.8 uM^3 (9.0-12.4); PLATELET COUNT 66 K/uL (156-360); RBC DIS.WIDTH-CV 14.5 % (11.8-14.6); RBC DIS.WIDTH-SD 49.6 % (39-53); RED BLOOD COUNT 3.83 M/uL (4.00-5.50); WHITE BLOOD COUNT 4.3 K/uL (4.1-10.2)
[2016-10-04 14:42] LABS: CHLORIDE 108 mEq/L (99-109); POTASSIUM 5.2 mEq/L (3.7-5.4); SODIUM 136 mEq/L (136-147)
[2016-10-04 14:44] LABS: GLUCOSE 136 mg/dL (70-99)
[2016-10-04 14:45] LABS: ANION GAP 5 MEQ/L (2-14)
[2016-10-04 14:48] LABS: GFR ESTIMATE (CALCULATED) 43 mL/min/; UREA NITROGEN (BUN) 45 mg/dL (9-23)
[2016-10-04 17:05] VITALS: BP 175/74
== END 2016-10-04 17:08 | disposition home or self-care (01) ==
LOC: EME → EDBD 12:38 → EME 12:38
PROVIDERS: Emergency Medicine
DX: G89.29 Other chronic pain (principal); M54.5 Low back pain; K74.60 Unspecified cirrhosis of liver; E11.22 Type 2 diabetes mellitus with diabetic chronic kidney disease; N18.3 Chronic kidney disease, stage 3 (moderate); K72.10 Chronic hepatic failure without coma; F17.200 Nicotine dependence, unspecified, uncomplicated; Z85.828 Personal history of other malignant neoplasm of skin
CPT/HCPCS: 80048; 81003; 85027; 99281; 99285; G8978 GP CH; G8979 GP CH; G8980 GP CH; G8987 GO CH; G8988 GO CH; G8989 GO CH

== ENCOUNTER 2016-11-08 13:10 | Emergency (ER) | payer OTHER ==
[~2016-11-08] VITALS: Ht 180.3 cm; Wt 96.4 kg
[2016-11-08 13:24] VITALS: BP 109/69
[2016-11-08 15:19] LABS: EOSINOPHIL (%) 7.1 % (0-5); EOSINOPHIL COUNT 0.4 K/uL (0-0.3); HEMATOCRIT 35.4 % (38.0-50.0); IMMATURE GRANULOCYTE (%) 0.4 % (0.0-0.7); INSTRUMENT ABS NEUTROPHIL CT 3.2 K/uL; MCH 32.2 PG (29.0-34.0); MCHC 34.7 G/DL (30.0-36.0); MCV 92.7 FL (86-99); MONOCYTE (%) 11.1 % (3-12); MONOCYTE COUNT 0.6 K/uL (0-0.8); NEUTROPHIL (%) 60.8 % (45-76); NEUTROPHIL COUNT 3.2 K/uL (1.8-6.4); PLATELET COUNT 71 K/uL (156-360); RBC DIS.WIDTH-CV 14.3 % (11.8-14.6); RBC DIS.WIDTH-SD 47.8 % (39-53); RED BLOOD COUNT 3.82 M/uL (4.00-5.50); WHITE BLOOD COUNT 5.2 K/uL (4.1-10.2)
[2016-11-08 15:32] LABS: CHLORIDE 109 mEq/L (99-109); POTASSIUM 5.3 mEq/L (3.7-5.4)
[2016-11-08 15:33] LABS: SODIUM 139 mEq/L (136-147)
[2016-11-08 15:35] LABS: GLUCOSE 93 mg/dL (70-99)
[2016-11-08 15:36] LABS: ANION GAP 7 MEQ/L (2-14)
[2016-11-08 15:37] LABS: TOTAL BILIRUBIN 1.6 mg/dL (0.0-1.0)
[2016-11-08 15:38] LABS: ALKALINE PHOSPHATASE 70 IU/L (3-129); GFR ESTIMATE (CALCULATED) 38 mL/min/
[2016-11-08 15:40] LABS: UREA NITROGEN (BUN) 47 mg/dL (9-23)
[2016-11-08] MEDS ORDERED: NAPROXEN500 MG PO (16:23)
== END 2016-11-08 16:39 | disposition home or self-care (01) ==
LOC: EME 13:10
PROVIDERS: Physician Assistant
PROC: 3E0234Z Introduction of Serum, Toxoid and Vaccine into Muscle, Percutaneous Approach (ICD-10-PCS; principal; 2016-11-08)
DX: S50.311A Abrasion of right elbow, initial encounter (principal); W18.30XA Fall on same level, unspecified, initial encounter; Y93.01 Activity, walking, marching and hiking; S22.059A Unspecified fracture of T5-T6 vertebra, initial encounter for closed fracture; Z23 Encounter for immunization; C44.319 Basal cell carcinoma of skin of other parts of face
CPT/HCPCS: 72070; 72100; 73080; 80053; 85025; 99281; 99283

== ENCOUNTER → 2017-03-03 | Outpatient (CLI) | payer OTHER ==
[~2017-03-03] MED LIST changes: +NAPROXEN500 MG PO
== END | disposition home or self-care (01) ==
LOC: RAD 08:17
DX: Z01.818 Encounter for other preprocedural examination (principal); K70.31 Alcoholic cirrhosis of liver with ascites
CPT/HCPCS: 71020

== ENCOUNTER → 2017-03-06 | Outpatient (CLI) | payer OTHER | END | disposition home or self-care (01) | LOC: MRI 09:34 → RAD 11:00 | DX: Z01.818 Encounter for other preprocedural examination (principal); K70.31 Alcoholic cirrhosis of liver with ascites; K76.6 Portal hypertension; Q61.02 Congenital multiple renal cysts; K80.50 Calculus of bile duct without cholangitis or cholecystitis without obstruction | CPT/HCPCS: 74183 ==

== ENCOUNTER → 2017-03-17 | Outpatient (CLI) | payer OTHER ==
[~2017-03-17] VITALS: Ht 180.3 cm; Wt 90.7 kg
[~2017-03-17] MED LIST changes: +ZANAFLEX2 M1 PO
[2017-03-17 12:47] LABS: POINT-OF-CARE METER ID UU14107333; POINT-OF-CARE USER ID AHSRSCSLC11
== END | disposition home or self-care (01) ==
LOC: AMB 11:19
PROVIDERS: Internal Medicine Gastroenterology
PROC: 0DB68ZX Excision of Stomach, Via Natural or Artificial Opening Endoscopic, Diagnostic (ICD-10-PCS; principal; 2017-03-17)
DX: I85.00 Esophageal varices without bleeding (principal); K44.9 Diaphragmatic hernia without obstruction or gangrene; K22.2 Esophageal obstruction; K76.6 Portal hypertension; K31.89 Other diseases of stomach and duodenum; K26.9 Duodenal ulcer, unspecified as acute or chronic, without hemorrhage or perforation; K70.30 Alcoholic cirrhosis of liver without ascites; J44.9 Chronic obstructive pulmonary disease, unspecified; E78.2 Mixed hyperlipidemia; I12.9 Hypertensive chronic kidney disease with stage 1 through stage 4 chronic kidney disease, or unspecified chronic kidney disease; E11.22 Type 2 diabetes mellitus with diabetic chronic kidney disease; N18.9 Chronic kidney disease, unspecified; Z86.19 Personal history of other infectious and parasitic diseases; E66.3 Overweight; Z68.29 Body mass index [BMI] 29.0-29.9, adult
CPT/HCPCS: 82948; 88305; 88342 TC; 93005

== ENCOUNTER 2017-10-04 16:06 | Emergency (ER) | payer OTHER ==
[~2017-10-04] VITALS: Ht 180.3 cm; Wt 99.5 kg
[2017-10-04 17:59] VITALS: BP 177/107
== END 2017-10-04 18:33 | disposition home or self-care (01) ==
LOC: EME 16:06
DX: K91.840 Postprocedural hemorrhage of a digestive system organ or structure following a digestive system procedure (principal); Y83.8 Other surgical procedures as the cause of abnormal reaction of the patient, or of later complication, without mention of misadventure at the time of the procedure; J45.909 Unspecified asthma, uncomplicated; E11.22 Type 2 diabetes mellitus with diabetic chronic kidney disease; I12.9 Hypertensive chronic kidney disease with stage 1 through stage 4 chronic kidney disease, or unspecified chronic kidney disease; N18.3 Chronic kidney disease, stage 3 (moderate); K72.90 Hepatic failure, unspecified without coma; K21.9 Gastro-esophageal reflux disease without esophagitis; B19.20 Unspecified viral hepatitis C without hepatic coma; F17.200 Nicotine dependence, unspecified, uncomplicated; Z85.828 Personal history of other malignant neoplasm of skin
CPT/HCPCS: 99281; 99284

== ENCOUNTER 2017-11-22 23:51 | Emergency (ER) | payer OTHER ==
[~2017-11-22] VITALS: Ht 180.3 cm; Wt 104.0 kg
[~2017-11-22 23:51] MED LIST changes: +COREG6.25 M1 PO; +LIPITOR20 MG PO; +SPIRONOLACTONE50 MG PO
[2017-11-23 00:51] LABS: HEMATOCRIT 30.5 % (38.0-50.0); HEMOGLOBIN 10.6 G/DL (12.5-16.6); MCH 32.8 PG (29.0-34.0); MCHC 34.8 G/DL (30.0-36.0); MCV 94.4 FL (86-99); PLATELET COUNT 60 K/uL (156-360); RBC DIS.WIDTH-CV 13.9 % (11.8-14.6); RED BLOOD COUNT 3.23 M/uL (4.00-5.50); WHITE BLOOD COUNT 4.4 K/uL (4.1-10.2)
[2017-11-23 01:02] LABS: CHLORIDE 109 mEq/L (99-109); POTASSIUM 4.1 mEq/L (3.7-5.4); SODIUM 140 mEq/L (136-147)
[2017-11-23 01:03] LABS: GLUCOSE 109 mg/dL (70-99)
[2017-11-23 01:07] LABS: CREATININE 2.1 mg/dL (0.6-1.3); GFR ESTIMATE (CALCULATED) 34 mL/min/ (58.99-99999)
[2017-11-23 01:08] LABS: UREA NITROGEN (BUN) 28 mg/dL (9-23)
[2017-11-23 03:22] LABS: TROP-I INTERPRETATION NEGATIVE; TROPONIN-I 0.03 ng/mL (0.0-0.30)
[2017-11-23] MEDS ORDERED: LEVAQUIN750 MG PO (04:58)
[2017-11-23] MEDS ORDERED: PREDNISONE20 MG PO (04:58)
[2017-11-23 05:20] VITALS: BP 194/91
== END 2017-11-23 05:22 | disposition home or self-care (01) ==
LOC: EME 23:51
DX: J44.1 Chronic obstructive pulmonary disease with (acute) exacerbation (principal); E11.9 Type 2 diabetes mellitus without complications; K21.9 Gastro-esophageal reflux disease without esophagitis; F17.200 Nicotine dependence, unspecified, uncomplicated
CPT/HCPCS: 71046; 80048; 83880 GA; 84484; 85027; 93005; 94640; 99281; 99285; J2930